=== PATIENT | female | born 1940 | race African-American/Black ===

== ENCOUNTER 2019-05-23 12:01 | Emergency (ER) | payer MEDICARE ==
[2019-05-23 12:36] LABS: #Basophils 0.1 thou/uL (0.0-0.2); #Eosinphils 0.3 thou/uL (0.0-0.7); #Lymphocytes 1.6 thou/uL (1.20-3.40); #Monocytes 0.6 thou/uL (0.11-0.59); #Neutrophils 4.9 thou/uL (1.40-6.50); %Basophils 1.2 % (0.0-1.0); %Eosinophils 3.7 % (0.0-10.0); %Monocytes 8.2 % (0.0-10.0); %Neutrophils 65.8 % (42.0-75.0); Hemoglobin 14.1 g/dL (12.0-16.0); Mean Corpuscular HGB CONC 30.8 g/dL (32.0-36.0); Mean Corpuscular Hemoglobin 29.4 pg (27.0-31.0); Mean Corpuscular Volume 95.6 fL (78.0-98.0); Mean Platelet Volume 8.3 fL (7.4-10.4); Platelet Count 271 thou/uL (130-400); RBC Distribution Width 12.3 % (11.5-14.5); Red Blood Cell (RBC) Count 4.78 mill/uL (4.20-5.40); White Blood Cell (WBC) Count 7.4 thou/uL (4.8-10.8)
--- NOTE | 2019-05-23 12:51 | RAD ---
Exam: Chest one view HISTORY:Dyspnea Comparison: None FINDINGS: Lungs: Elevation of right hemidiaphragm. Superimposed right basilar opacity is not excluded. Cardiac silhouette:Enlarged Pulmonary vessels: Pulmonary vascular congestion Pleural Spaces: There is blunting of right costophrenic sulcus which may relate to pleural fluid, sup erimposed upon elevated right hemidiaphragm Pneumothorax: None Osseous abnormalities: None of acuity. IMPRESSION: Evidence of CHF. Elevation right hemidiaphragm. Superimposed right basilar density may relate to pleural fluid. Follow -up may be obtained with 2 view chest.
[2019-05-23 12:53] LABS: Actual Bicarbonate (HCO3a) 32.5 mEq/L (22-28); Analyzer IN Cardio ER; Base Excess (BEa) 5.4 mEq/L (-2.0 to +3.0); CO2 Tension 57.9 mmHg (35.0-45.0); Calcium, Ionized 1.17 mmol/L (1.12-1.30); Carboxyhemoglobin (COHb) 2.4 gm% (0.0-3.0); Hemoglobin (Hb) 14.4 g/dL (12.0-16.0); Potassium - ABG Lab 4.28 mmol/L (3.70-5.30); pH, Arterial 7.37 (7.35-7.45)
[2019-05-23 12:57] LABS: ALV-art Gradient 71.965 (0-20); O2 Tension (PaO2) 55.3 mmHg (> 70.0); Puncture Site RRA
[2019-05-23 13:08] LABS: ALT (SGPT) 20 U/L (8-55); AST (SGOT) 24 U/L (5-34); Albumin 3.6 g/dL (3.4-4.8); Alkaline Phosphatase 85 U/L (40-110); Anion Gap 13 mmol/L (10-20); BUN (Urea Nitrogen) 16 mg/dL (9.8-20.1); Bilirubin, Total 0.4 mg/dL (0.2-1.2); CK (CPK) 95 U/L (29-168); Calc. Creatinine Clearance 0 mL/min (70-130); Calcium 9.4 mg/dL (7.8-10.44); Carbon Dioxide 34 mmol/L (23-31); Chloride 101 mmol/L (98-107); Estimated GFR-MDRD 59; Globulin 4.1 g/dL (2.4-3.5); Glucose 102 mg/dL (83-110); Lipase 8 U/L (8-78); Protein, Total 7.7 g/dL (6.0-8.3); Sodium 143 mmol/L (136-145)
--- NOTE | 2019-05-26 16:14 | EKG ---
Test Reason : Blood Pressure : / mmHG Vent. Rate : 087 BPM Atrial Rate : 087 BPM P-R Int : 148 ms QRS Dur : 130 ms QT Int : 414 ms P-R-T Axes : 043 -89 039 degrees QTc Int : 498 ms Normal sinus rhythm Possible Left atrial enlargement Left axis deviation Right bundle branch block Inferior infarct , age undetermined Abnormal ECG Confirmed by AFSANEH ZULUAGA, DALY ([id number]), publications editor KRYSTAL CHAPMAN ([id number]) on 05/26/2019 4:13:04 PM Referred By: Confirmed By:DALY SHELBY MD
== END 2019-05-23 14:10 | disposition home or self-care (01) ==
LOC: ERS 12:01
DX: R09.02 Hypoxemia (principal); J98.6 Disorders of diaphragm; I10 Essential (primary) hypertension; E78.5 Hyperlipidemia, unspecified; F17.210 Nicotine dependence, cigarettes, uncomplicated
CPT/HCPCS: 71045; 80053; 82550; 82805; 83690; 83880; 84484; 85025; 93005; 94640; 94760; J7620